=== PATIENT | male | born 1995 | race Caucasian/White ===

== ENCOUNTER 2017-08-07 06:50 | Day surgery (SDC) | payer OTHER ==
[2017-08-07] MEDS ORDERED: PROPOFOL 200 MG INJ (07:00)
[2017-08-07] MEDS ORDERED: LIDOCAINE 2% (SDV) 5 ML INJ (07:00)
[2017-08-07] MEDS ORDERED: CEFAZOLIN 2 GM/50 ML (PMX) 50 ML IVPB (07:00)
[2017-08-07] MEDS ORDERED: CEFAZOLIN 1 GM INJ (07:00)
[2017-08-07] MEDS ORDERED: FENTAnyl 50 MCG/ML VIAL (08:47)
[2017-08-07] MEDS ORDERED: MIDAZOLAM 1 MG/ML 2 ML INJ (09:28)
[2017-08-07] MEDS: BUPIVACAINE 0.25% (MPF) 30 ML INJ (09:59)
[2017-08-07] MEDS ORDERED: ONDANSETRON 4 MG INJ IV (10:30)
[2017-08-07] MEDS ORDERED: HYDROmorphONE (0.2 MG/ML) 10ML SYG IV (10:30)
[2017-08-07] MEDS ORDERED: MEPERIDINE 25 MG INJ IV (10:30)
[2017-08-07] MEDS ORDERED: DIPHENHYDRAMINE 50 MG INJ IV (10:30)
[2017-08-07] MEDS ORDERED: FENTAnyl 50 MCG/ML VIAL IV ×2 (10:30)
[2017-08-07] MEDS ORDERED: METOCLOPRAMIDE 10 MG INJ IV (10:30)
[2017-08-07] MEDS: KETOROLAC 30 MG INJ IV (11:40)
[2017-08-07] MEDS: HYDROmorphONE (0.2 MG/ML) 10ML SYG IV (11:54)
== END 2017-08-07 12:15 | disposition home or self-care (01) ==
LOC: SDS 06:50
DX: Q53.112 Unilateral inguinal testis (principal)
CPT/HCPCS: 54520; 88305